=== PATIENT | female | born 1950 | race Caucasian/White ===

== ENCOUNTER 2022-10-10 13:00 | Outpatient (REF) | payer MEDICARE, OTHER, SELFPAY ==
--- NOTE | ~2022-10-10 | XR_ITS ---
EXAMINATION: XR LUMBOSACRAL SPINE WITH OBLIQUES CLINICAL INFORMATION: Vertebral disc degeneration, lumbar region COMPARISON: None available. TECHNIQUE: 4 views of the lumbar spine were obtained FINDINGS: 5 nonrib-bearing lumbar vertebral bodies are visualized. There is minimal levoscoliosis of the lower lumbar spine. Also noted is minimal retrolisthesis of L2 on L3 with mild anterolisthesis of L4 on L5. There is no appreciable change in alignment with flexion or extension positioning. Lumbar vertebral body heights are maintained. There is mild narrowing of the L3/L4 disc space height with moderate to severe narrowing of the L4/L5 and L5/S1 disc space heights. Small to moderate-sized osteophytes are scattered throughout the lumbar spine. There are degenerative changes of the posterior elements of the lower lumbar spine. Sacroiliac joints appear symmetric. Surgical clips project over the right hemipelvis. XR/XR lumbar spine 4V min IMPRESSION: 1. Moderate diffuse degenerative changes of the lumbar spine. 2. No compression deformity. 3. No radiographic evidence of instability.
== END 2022-10-10 13:01 | disposition home or self-care (01) ==
LOC: HO.HOSX 13:00
PROVIDERS: Visit Provider Physician Assistant
DX: M51.36 Other intervertebral disc degeneration, lumbar region (principal)
CPT/HCPCS: 72110; 99202